=== PATIENT | male | born 1945 | race Caucasian/White ===

== ENCOUNTER → 2019-06-11 | Outpatient (CLI) | payer MEDICARE, OTHER | END | disposition home or self-care (01) | LOC: RAD 12:46 | PROVIDERS: ATTEND Family Medicine | DX: M27.40 Unspecified cyst of jaw (principal); M79.89 Other specified soft tissue disorders | CPT/HCPCS: 76536 ==

== ENCOUNTER 2019-06-12 13:36 | Emergency (ER) | payer MEDICARE, OTHER ==
[~2019-06-12] VITALS: Ht 175.3 cm; Wt 96.7 kg
[2019-06-12 13:37] VITALS: BP 165/76
[2019-06-12] MEDS ORDERED: SODIUM CHLORIDE FLUSH 10ML SYR IVF ONE (14:00)
[2019-06-12 14:21] LABS: BASOPHILS # (AUTO) 0.04 x10^3/uL (0-0.1); BASOPHILS % (AUTO) 1 % (0-1); EOSINOPHILS % (AUTO) 3 % (1-7); LYMPHOCYTES # (AUTO) 1.95 x10^3/uL (1-3.4); LYMPHOCYTES % (AUTO) 24 % (22-44); MD NO; MEAN CORPUSCULAR HEMOGLOBIN 31.7 pg (27.5-34.5); MEAN CORPUSCULAR HGB CONC 33.7 g/dL (33.2-36.2); MEAN CORPUSCULAR VOLUME 94.1 fL (81-97); MEAN PLATELET VOLUME 8.7 fL (7.4-10.4); MONOCYTES % (AUTO) 10 % (2-9); NEUTROPHILS # (AUTO) 5.17 x10^3/uL (1.8-6.8); NEUTROPHILS % (AUTO) 63 % (42-75); PLATELET COUNT 186 x10^3/uL (130-400); RED BLOOD COUNT 4.91 x10^6/uL (4.38-5.82); RED CELL DISTRIBUTION WIDTH 13.3 % (9.4-14.8)
[2019-06-12 14:33] LABS: ALBUMIN 3.3 g/dL (3.4-5.0); ANION GAP 5 mmol/L (5-15); CALCIUM 8.3 mg/dL (8.5-10.1); CHLORIDE 108 mmol/L (98-107); CREATININE 1.03 mg/dL (0.7-1.3)
--- NOTE | 2019-06-12 14:40 | NUR ---
CT DELAYED TO DO CODE NEURO FIRST
--- NOTE | 2019-06-12 15:23 | NUR ---
AWAITING CT, PT IS A&O, RESPS EVEN AND UNLABORED, ABLE TO SWALLOW AND MANAGE SECRETIONS. PT SPEAKING IN FULL SENTENCES WITHOUT DIFFICULTLY. SPO2 MONITORS IN PLACE. REPORT GIVEN TO [facility] BERNAL.
[2019-06-12] MEDS ORDERED: OMNIPAQUE 350 MG/ML, 100ML BOTTLE ONE (16:42)
== END 2019-06-12 16:45 | disposition home or self-care (01) ==
LOC: ED 16:35
DX: M86.8X8 Other osteomyelitis, other site (principal); I10 Essential (primary) hypertension; E78.00 Pure hypercholesterolemia, unspecified; Z98.61 Coronary angioplasty status
CPT/HCPCS: 36415; 70491; 80048; 82040; 85025; 99285; Q9967